=== PATIENT | female | born 1980 | race Hispanic/Latino ===

== ENCOUNTER 2017-06-18 16:41 | Inpatient (IN) | payer MEDICAID ==
[2017-06-18] MEDS ORDERED: Oxytocin 30 UNIT 30 UNITS/500 ML BAG IV SCH (17:45)
[2017-06-18] MEDS ORDERED: Lactated Ringer's 1,000 ML IV SCH (17:45)
[2017-06-18 18:49] LABS: BASO % 0.5 % (0.0-2.0); EOS # 0.2 K/uL (0.0-0.7); EOS % 3.1 % (0.0-4.0); HEMOGLOBIN 13.5 g/dL (11.0-16.0); LYMPH # 1.2 K/uL (1.0-4.3); LYMPH % 20.6 % (20.0-40.0); MEAN CELL VOLUME 89.8 fL (81.0-99.0); MEAN CORPUSCULAR HEMOGLOBIN 30.8 pg (27.0-31.0); MEAN CORPUSCULAR HGB CONC 34.2 g/dL (33.0-37.0); MEAN PLATELET VOLUME 7.6 fL (7.2-11.7); MONO # 0.4 K/uL (0.0-0.8); MONO % 6.7 % (0.0-10.0); NEUT # 4.1 K/uL (1.8-7.0); NEUT % 69.1 % (50.0-75.0); NRBC % 0.2 % (0.0-2.0); RBC 4.41 Mil/uL (3.80-5.20); RED CELL DISTRIBUTION WIDTH 14.1 % (11.5-14.5); WHITE BLOOD COUNT 5.9 K/uL (4.8-10.8)
[2017-06-18 18:52] LABS: SQUAMOUS EPITHIAL 1 /hpf (0-5); URINE BACTERIA RARE (<OCC); URINE BILIRUBIN NEGATIVE (NEGATIVE); URINE BLOOD 1+ (NEGATIVE); URINE CLARITY Clear (Clear); URINE COLOR Straw (YELLOW); URINE GLUCOSE (UA) NORMAL (Normal); URINE LEUKOCYTE ESTERASE NEG Leu/uL (Negative); URINE NITRATE NEGATIVE (NEGATIVE); URINE PROTEIN NEGATIVE (NEGATIVE); URINE UROBILINOGEN NORMAL mg/dL (0.2-1.0)
[2017-06-18 19:01] LABS: ALBUMIN 3.4 g/dL (3.5-5.0); ALT/SGPT 33 U/L (9-52); AST/SGOT 36 U/L (14-36); BLOOD UREA NITROGEN 13 mg/dL (7-17); CALCIUM 9.4 mg/dl (8.6-10.4); GFR AFRICAN-AMERICAN > 60; GFR NON-AFRICAN AMERICAN > 60
[2017-06-18 19:02] LABS: ALB/GLOB RATIO 0.8 (1.0-2.1)
[2017-06-18 19:31] LABS: HEPATITIS B SURFACE AG NEGATIVE (NEGATIVE)
[2017-06-18] MEDS ORDERED: Oxycodone/Acetaminophen 5/325 mg Tab PO PRN (22:16)
[2017-06-18] MEDS ORDERED: Benzocaine/Menthol 20%-0.5% Topical Spray (60 ml) TOP PRN (22:16)
--- NOTE | 2017-06-18 22:19 | OBDS ---
DELIVERY PERSONNEL Delivery Doctor: Justin Stark MD Director Of Clinical Trials: Gilbert Stokes RN Anesthesiologist: Ani Shaw MD MATERNAL INFORMATION Delivery Anesthesia: Epidural RN Comments: pt was admitted in early labor . pt had epidural. FHR with prolong julio césar gradually down to 50BPM OVER 10-11 MINS slow return to baseline Provider Comments: Uncomplicated spontaneous vaginal delivery of a viable male infant with BW of an d scores of 9 and 9 over an intact perineum. EBL- 200mls LABOR SUMMARY EDC: 06/24/2017 00:00 No. Babies in Womb: 1 Attempted: No Labor Anesthesia: Epidural LABOR INFORMATION Reason for Induction: Not Applicable Onset of Labor: 06/18/2017 17:22 Complete Dilatation: 06/18/2017 20:58 Oxytocin: N/A Group B Beta Strep: Negative Steroids Given: None Reason Steroids Not Administered: Not Applicable Other Reason Not Administered: term MEMBRANES Membranes Rupture Method: Spontaneous Rupture of Membranes: 06/18/2017 15:30 Length of Rupture (hrs): 6.50 Amniotic Fluid Color: Clear Amniotic Fluid Amount: Small Amniotic Fluid Odor: Normal STAGES OF LABOR Stage 1 hrs: 3 Stage 1 min: 36 Stage 2 hrs: 1 Stage 2 min: 2 Stage 3 hrs: 0 Stage 3 min: 10 Total Time in Labor hrs: 4 Total Time in Labor min: 48 VAGINAL DELIVERY Laceration Extension: N/A Laceration Type: None Sponge Count Correct: Yes Sharps Count Correct: N/A BABY A INFORMATION Delivery Date/Time: 06/18/2017 22:00 Method of Delivery: Vaginal Born in Route : No : N/A Forceps: N/A Vacuum Extraction: N/A Shoulder Dystocia : No SHOULDER DYSTOCIA BABY A Delivery Date/Time: 06/18/2017 22:00 PRESENTATION/POSITION BABY A Presentation: Cephalic Cephalic Presentation: Vertex Vertex Position: Left Occipital Anterior Breech Presentation: N/A PLACENTA INFORMATION BABY A Placenta Delivery Time : 06/18/2017 22:10 Placenta Method of Delivery: Spontaneous Placenta Status: Delivered SCORES BABY A Heart Rate 1 min: >100 bpm Resp Effort 1 min: Good Cry Reflex Irritability 1 min: Cough or Sneeze or Pulls Away Muscle Tone 1 min: Active Motion Color 1 min: Body Mason Neck, Extremities Blue Resuscitation Effort 1 min: Tactile Stimulation SCORE 1 MIN: 9 Heart Rate 5 min: >100 bpm Resp Effort 5 min: Good Cry Reflex Irritability 5 min: Cough or Sneeze or Pulls Away Muscle Tone 5 min: Active Motion Color 5 min: Body Mason Neck, Extremities Blue Resuscitation Effort 5 min: Tactile Stimulation SCORE 5 MIN: 9 INFANT INFORMATION BABY A Gestational Age at Delivery: 39.1 Gestational Status: Term Outcome : Liveborn Condition : Stable Sex: Male IDENTIFICATION/MEDS BABY A ID Band Number: [id number] ID Band Location: Left Leg; Left Arm Sensor Applied: Yes Sensor Number: [id number] Sensor Location : Cord Clamp WEIGHT/LENGTH BABY A Birthweight (gms): 3365 Infant Weight (lb): 7 Infant Weight (oz): 7 CORD INFORMATION BABY A No. Cord Vessels: 3 Nuchal Cord : N/A Cord Blood Taken: Yes Infant Suction: Mouth; Nose
--- NOTE | 2017-06-18 22:21 | OBADHP ---
Datetime: 06/18/2017 17:45 Admit Comment, IP Provider: Patient is a 36 year old at 39w1d TERENCE 06/24/17 by 10w0d US present s to L+D for suspected rupture of membranes. Patient states that at 15:30pm she felt a gush of fluid x 2. Reports that she is still leaking fluid and lost her mucous plug. Endorses +FM, +CTX. Patient re cieved care in [place], [place]. Recently moved to [place]. Issues: Advanced Maternal Age Hx of Chlaymdia - treated 02/03/17, DARIA negative OB Hx: 1. SAB x 3 2. 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/16 Triad: 14/regular/3-4 days Denies hx of fibroids, ovarian cysts, abnormal pap smear Hx of chlamydia during this , treated Allergies: NKDA Medications: PNV Medical Hx: Denies Surgical Hx: Denies Social Hx: Denies alcohol, tobacco, drug use Family Hx: Mom - ALS; Father - Colon cancer PE: see above A/P: 36 year old at 39w1d presents with rupture of membranes -Admit to unit -CEFM and TOCO -Admission labs: CBC, CMP, UA, TS, HepB surface ag -LR at 125cc/hr -GBS negative: no abx needed at this time -Pitocin for augmentation -Pain control prn -Anticipate Vaginal delivery -Plan discussed with attending Era Manriquez DO PGY-1 Seen with Resident and agrees with the above. Pelvic Type - PN: Adequate Extremities - PN: Normal Abdomen - PN: Normal Lungs - PN: Normal Heart - PN: Normal General - PN: Normal FHR - Baseline A Provider: 130 Amniotic Fluid Color, Provider: Clear Membranes, Provider: Ruptured Contraction Comments Provider: irreg Comments, ACOG Physical Exam: VSS Gen: AAOx3 CV: RRR Lungs: CTA B/L Abd: Soft, gravid Ext: No clubbing, cyanosis, edema SSE: +pooling, negative nitrazine SVE: 3-4/90/-2 Pool Provider: Positive Nitrazine Provider: Negative IP Hx Assessment: The History has been Reviewed and is Current Vital Signs Provider: Reviewed IP Chief Complaint: Suspected ruptured membranes NICHD Variability Prov Fetus A: Moderate 6-25bpm NICHD Accel Fetus A IP Provider: [id number] FHR Category Provider Fetus A: Category I NICHD Decel Fetus A IP Provider: None Dilatation, Provider: 3-4 Effacement, Provider: 90 Station, Provider: -2 EGA AdmitDate IP: 39.1 IP Adm Impression: Term, intrauterine IP Admit Plan: Admit to unit; Initiate labor protocol
[2017-06-19 08:42] VITALS: RESP 18
--- NOTE | 2017-06-19 10:17 | OBPPN ---
Datetime: 06/19/2017 10:12 PP Pain Prov: Within normal limits PP Nausea Prov: Denies PP Flatus Prov: Yes PP Breasts Prov: Normal PP Heart Prov: Normal PP Lungs Prov: Normal PP Abdomen/Uterus Prov: Normal PP Lochia Prov: Normal PP Vulva/Perineum Prov: Normal PP CVA Tenderness Prov: Normal PP Extremities Prov: Normal PP Comments Phys Exam Prov: Abd: Soft, NT, BS- present UT- Firm PP Impression Prov: Normal progression PP Plan Prov: Continue present management PP Progress Note Prov: S/P , Clinically Stable Plan: Continue care.
[2017-06-19 10:46] LABS: BASO % 0.4 % (0.0-2.0); EOS # 0.2 K/uL (0.0-0.7); EOS % 2.1 % (0.0-4.0); HEMOGLOBIN 12.8 g/dL (11.0-16.0); LYMPH # 1.6 K/uL (1.0-4.3); LYMPH % 17.2 % (20.0-40.0); MEAN CORPUSCULAR HEMOGLOBIN 31.2 pg (27.0-31.0); MEAN CORPUSCULAR HGB CONC 34.6 g/dL (33.0-37.0); MEAN PLATELET VOLUME 7.9 fL (7.2-11.7); MONO # 0.5 K/uL (0.0-0.8); MONO % 5.2 % (0.0-10.0); NEUT # 6.9 K/uL (1.8-7.0); NEUT % 75.1 % (50.0-75.0); NRBC % 0.2 % (0.0-2.0); RBC 4.09 Mil/uL (3.80-5.20); RED CELL DISTRIBUTION WIDTH 13.9 % (11.5-14.5); WHITE BLOOD COUNT 9.2 K/uL (4.8-10.8)
[2017-06-20 08:31] VITALS: BP 122/65; PULSE 88; TEMP 97.6; O2SAT 98
--- NOTE | 2017-06-20 09:48 | OBPPN ---
Datetime: 06/20/2017 09:38 PP Pain Prov: Within normal limits PP Nausea Prov: Denies PP Flatus Prov: Yes PP BM Prov: No PP Breasts Prov: Normal PP Heart Prov: Normal PP Lungs Prov: Normal PP Abdomen/Uterus Prov: Normal PP Lochia Prov: Normal PP Vulva/Perineum Prov: Not Done PP CVA Tenderness Prov: Normal PP Extremities Prov: Normal PP C/S Incision Prov: Not Applicable PP Progress Prov: Normal PP Comments Phys Exam Prov: Abdomen: Obese. Soft, non distended. Fundus firm, mobile, non tender, 2 FB below umbilicus. Mild lochia rubra. Extremities: no calf tenderness; trace pedal edema All other systems reviewed and are negative PP Impression Prov: Normal progression PP Plan Prov: Discharge PP Progress Note Prov: Patient received sittting up and , in room 459. Denies nausea, vomiting. Ambulating and voiding without difficulty. No BM yet P.E.: as above. WD in NAD. Awake, alert, oriented to time, person and place. Pleasant and coopera tive - PPD#1 H/H 12.8/26.8. Rh(+) Assessment: PPD#2, 36 y.o. [id number], S/P , care in [place]; now living in [place]. Afebrile, v ital signs stable. Desires permanent sterilization; other options discussed to be used in the interim , especially condom. Clinically stable. Plan: 1) Discharge home 2) See full discharge instructions 3) F/U in 6 weeks, with new [place]-based Ob Vital Signs Provider PP: Reviewed; Within Normal Limits
--- NOTE | 2017-06-20 09:48 | OBDCSUM ---
Datetime: 06/20/2017 08:16 Discharged to, Provider: Home Follow up at, Provider: OB doctor of choice Disch Instr Activity: Normal activity; May be up to bathroom; May be up for meals; May Shower Disch Instr Diet: Regular Discharge Instructions, Provider: Routine instructions given Discharge Diagnosis, Provider: Term Delivered Discharge Time: 06/20/2017 09:15 Follow up in weeks, Provider: 6 weeks Disch Referrals: None Contraception discussed, Prov: Yes Disch Activity Restrictions: No sexual activity; Nothing in vagina - [place], tampons, douche Discharge Diagnosis Prov Other: Advanced maternal age Previous delivery Contraception counseling Contraception after Delivery: Foam/Condoms; Tubal Ligation
== END 2017-06-20 10:15 | disposition home or self-care (01) | DRG 372 ==
LOC: C.EROB 16:41 → C.4LDOR 17:30 → C.4M 23:26
PROVIDERS: ADMIT Obstetrics & Gynecology; ATTEND Obstetrics & Gynecology
PROC: 10E0XZZ Delivery of Products of Conception, External Approach (ICD-10-PCS; principal; 2017-06-18)
DX: O42.02 Full-term premature rupture of membranes, onset of labor within 24 hours of rupture (principal); Z37.0 Single live birth; Z3A.39 39 weeks gestation of pregnancy